=== PATIENT | male | born 1955 | race Caucasian/White ===

== ENCOUNTER 2025-06-01 12:47 | Outpatient (REF) | payer OTHER, SELFPAY ==
--- NOTE | ~2025-06-01 | XR_ITS ---
EXAMINATION: XR LUMBAR SPINE 4 OR MORE VIEWS HISTORY: M54.16 - Radiculopathy, lumbar region COMPARISON: There are no prior studies for comparison. FINDINGS: AP, and neutral, flexion, and extension lateral views of the lumbar spine are submitted. Osseous mineralization is normal. Five nonrib-bearing lumbar vertebral bodies are identified, maintaining normal height without evidence of fracture or spondylolisthesis. There is straightening of the normal lumbar lordosis. There is diffuse moderate to severe degenerative disc disease with disc space narrowing and osteophyte formation. There is no abnormal motion with flexion or extension. The visualized paraspinal soft tissues are unremarkable. XR/XR lumbar spine 4V min IMPRESSION: Straightening of the normal lumbar lordosis. There is moderate degenerative disc disease. No abnormal motion with flexion or extension. Electronically signed by: Peter Jama MD 06/01/2025 03:08 PM EDT
== END 2025-06-01 12:48 | disposition home or self-care (01) ==
LOC: HO.HOSX 12:47
PROVIDERS: Visit Provider Physician Assistant
DX: M54.16 Radiculopathy, lumbar region (principal)
CPT/HCPCS: 72110

== ENCOUNTER 2025-06-01 12:47 | Outpatient (AMB) | payer OTHER, SELFPAY ==
--- NOTE | 2025-06-01 13:12 | A.SPINEOV_ITS ---
Vital Signs 06/01/25 13:38 Height 5 ft 11 in Weight 220 lb BMI 30.7 Intake Visit Reasons: low back pain Intake Note: Mr. Gomez is here today c/o low back pain. MRI at [facility]. 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 He has a history of 3 previous lumbar microdiskectomies done in [place] for which he has had excellent success. He was doing well until the fall. But now he has pain in his left buttock region going down his left leg into his lateral thigh into his lateral calf. Occasionally gets tingling in his leg as well. It is aggravated primarily in the morning when it is severe pain. It can improve as the day goes on however. He will take a leave, oxycodone and gabapentin to deal with it when it is quite severe. As the day goes on it seems to let off a little bit but by the next morning it is back to being intolerable. He has not had any physical therapy or dedicated conservative treatment yet at this point. He had seen someone at [facility] but unfortunately had a bad experience there and wanted to follow up with us. He has an MRI done at [facility] showing degenerative disc disease and foraminal stenosis. PMH: 3 previous microdiskectomies done in [place], other than that he tells me he may have some borderline cholesterol but otherwise healthy. Denies any cardiopulmonary, liver or renal disease. No blood clots, coagulopathies, cancer, bleeding disorders, diabetes or infection history. Social hx: He does not smoke, drink use any recreational drugs Medications: Aleve, oxycodone, gabapentin, multivitamin, vitamins B and D, magnesium and fish oil Allergies: None Physical exam: He has 3 well-healed scars on his back, all of which are about half an inch in length. Two were on the left in the upper part of the spine and what is in the midline the lower lumbar area. Strength and reflexes normal Imaging review: MRI of the lumbar spine done at [facility] shows that he has severe degeneration of multiple disc spaces, auto fusion of L2-3. Anterior bridging osteophytes at L3-4. Severe disc collapse at L4-5 with bilateral lateral recess stenosis. The imaging was done without contrast however so it is difficult to see exactly where the details of the nerve delineate from the disc space and soft tissues. The radiologist reads that the patient has severe left L5 foraminal stenosis but we can clearly see a fat rim around the nerve so we disagree with this. It is not clear if there was ever surgery done on the left L4-5 area. It looks like it was done on L5-S1 on the right. But again without contrast we can not delineate. We can definitely see postoperative changes at L2-3 where it looks like there has been a laminectomy. I sent the patient for flexion-extension x-rays to rule out instability after a fall and there is no signs of instability or fracture seen. Impression: 70-year-old gentleman with a history of 3 previous lumbar microdiskectomies done in [place], now presents with left L5 radiculopathy secondary to fall. We do not see an acute herniated disc but rather do see disc bulging and compression of the left L5 nerve root we believe in the lateral recess at L4-5. However, the imaging was done without contrast so it is not clear what we are looking at exactly if this is disc compressing the nerve or if we are seeing scar tissue. We are going to obtain the records from the [place] [facility] where he had the surgeries done and if there is no clear sign that there was surgery done in the left L4-5 we can offer him a left L4-5 decompression. If there was surgery done in the area, we will need to get a gadolinium based study to be sure that we are not seeing scar tissue instead of disc material on the nerve. Once all this is settled we will call him with the plan. I did admonished him that without having done physical therapy it is a good chance his insurance will require that before surgery. Given his extensive spinal history however I would think that they would be a little more flexible with this but we will have to see. We did discuss the procedure at length, risks, benefits etc.. Dr. Linder did briefly see the patient and discuss the findings with him as well. Thank you for allowing us to care for your patient. The total time spent with this visit with this patient was 45 minutes reviewing history, physical exam, lumbar imaging review, and implementation of treatment plan or further diagnostic testing Orestes Linder MD,PhD [facility] Orders: Orders XR lumbar spine 4V min Today M54.16 - Radiculopathy, lumbar region Coding Level of Care Code New Pt Level 4 (86091) Diagnoses Lumbar radiculopathy M54.16
[2025-06-01 13:38] VITALS: BMI 30.7
== END 2025-06-01 14:09 | disposition home or self-care (01) ==
LOC: HO.HNS 12:48
PROVIDERS: Visit Provider Physician Assistant
DX: M54.16 Radiculopathy, lumbar region (principal)
CPT/HCPCS: 99204

== ENCOUNTER → 2025-06-01 14:04 | Outpatient (BNV) | payer OTHER, SELFPAY | PROVIDERS: Visit Provider Radiology Diagnostic Radiology | DX: M51.360 Other intervertebral disc degeneration, lumbar region with discogenic back pain only (principal) | CPT/HCPCS: 72110 ==